=== PATIENT | female | born 2000 | race Caucasian/White ===

== ENCOUNTER 2023-01-04 06:25 | Emergency (ER) | payer SELFPAY ==
[~2023-01-04] VITALS: Ht 167.6 cm; Wt 83.0 kg
[2023-01-04 06:35] VITALS: O2SAT 99
[2023-01-04] MEDS ORDERED: IBUPROFEN 600MG TABLET PO ONE (07:45)
[2023-01-04 08:18] VITALS: BP 122/84
[2023-01-04] MEDS ORDERED: IBUP-2029 MT (08:26)
[2023-01-04 08:40] VITALS: PULSE 95; RESP 18; TEMP 98.6
== END 2023-01-04 08:45 | disposition home or self-care (01) ==
LOC: ER 06:25
DX: S82.201A Unspecified fracture of shaft of right tibia, initial encounter for closed fracture (principal); X58.XXXA Exposure to other specified factors, initial encounter; Y93.89 Activity, other specified; Y92.89 Other specified places as the place of occurrence of the external cause; Y99.8 Other external cause status
CPT/HCPCS: 73560; 73590; 81025; 99284

== ENCOUNTER 2024-04-06 19:57 | Emergency (ER) | payer MEDICAID ==
[~2024-04-06] VITALS: Ht 172.7 cm; Wt 112.0 kg
[~2024-04-06 19:57] MED LIST: IBUP-2029 MT
[2024-04-06 20:30] VITALS: O2SAT 99
[2024-04-06] MEDS ORDERED: MAGNESIUM/ALUMINUM HYDROXIDE/SIMETHICONE 30ML UDC PO ONE (21:00)
[2024-04-06] MEDS ORDERED: FAMOTIDINE 20MG TABLET PO ONE (21:00)
[2024-04-06] MEDS ORDERED: ONDANSETRON 4MG ODT PO ONE (21:00)
[2024-04-06 21:04] LABS: BASOPHILS % 1.1 % (0.0-2.0); EOSINOPHILS % 0.2 % (0.0-5.0); HEMATOCRIT. 43.2 % (36.0-48.0); HEMOGLOBIN. 14.4 g/dL (12.0-16.0); LYMPHOCYTES % 16.7 % (20.0-50.0); MEAN CORPUSCULAR HEMOGLOBIN 26.8 pg (28.0-32.0); MEAN CORPUSCULAR HGB CONC 33.3 g/dL (31.0-37.0); MEAN CORPUSCULAR VOLUME 80.6 fL (81.0-99.0); MEAN PLATELET VOLUME 7.7 fl (7.4-10.4); MONOCYTES % 6.6 % (2.0-8.0); NEUTROPHILS % 75.4 % (40.0-76.0); PLATELET 481 x1000/uL (130-400); RED BLOOD CELL COUNT 5.35 mill/uL (4.2-5.4); RED CELL DISTRIBUTION WIDTH 14.2 % (11.6-14.6); WHITE BLOOD COUNT 13.1 x1000/uL (4.5-11.0)
[2024-04-06 21:12] LABS: CHLORIDE 101 mEq/L (98-107); POTASSIUM 3.5 mEq/L (3.5-5.1); SODIUM 138 mEq/L (136-145)
[2024-04-06 21:13] LABS: CALCIUM 10.3 mg/dL (8.7-10.4); CARBON DIOXIDE 27 mEq/L (21-32)
[2024-04-06 21:18] LABS: CREATININE 0.8 mg/dL (0.6-1.0); GLUCOSE 90 mg/dL (70-105); UREA NITROGEN BLOOD 12 mg/dL (9-23)
[2024-04-06 21:20] LABS: ALANINE AMINOTRANSFERASE 32 IU/L (10-49); ALBUMIN 5.2 g/dL (3.2-4.8); ASPARTATE AMINOTRANSFERASE 22 IU/L (<34); BILIRUBIN DIRECT 0.2 mg/dL (<=3.0); HCG SCREEN NEGATIVE
[2024-04-06 21:21] LABS: BILIRUBIN TOTAL 0.6 mg/dL (0.1-1.0); PROTEIN TOTAL 8.9 g/dL (6.0-8.3)
[2024-04-06 21:49] LABS: TROPONIN I HIGH SENSITIVITY < 4 ng/L (3.0-34)
[2024-04-06] MEDS ORDERED: ONDA-239 PO (22:16)
[2024-04-06 22:40] VITALS: BP 133/77; PULSE 86; RESP 16; TEMP 36.78072; O2SAT 100
[2024-04-06] MEDS ORDERED: ONDANSETRON 4MG ODT PO NR (23:15)
[2024-04-06] MEDS ORDERED: MAGNESIUM/ALUMINUM HYDROXIDE/SIMETHICONE 30ML UDC PO NR (23:15)
[2024-04-06] MEDS ORDERED: FAMOTIDINE 20MG TABLET PO NR (23:15)
== END 2024-04-06 23:25 | disposition home or self-care (01) ==
LOC: ER 20:22
DX: R10.13 Epigastric pain (principal); R07.89 Other chest pain; R11.2 Nausea with vomiting, unspecified
CPT/HCPCS: 36415; 71045; 80048; 80076; 84484; 84703; 85025; 93005; 99284